=== PATIENT | female | born 1965 | race Caucasian/White ===

== ENCOUNTER 2017-02-27 21:43 | Emergency (ER) | payer OTHER ==
[~2017-02-27] VITALS: Ht 149.9 cm; Wt 40.8 kg
[~2017-02-27 21:43] MED LIST: MOTRIN800 MG PO; PRILOSEC10 MG; SKELAXIN800 MG; TORADOL10 MG
[2017-02-28] MEDS ORDERED: KETO10TA2 PO (02:40)
== END 2017-02-28 02:39 | disposition home or self-care (01) ==
LOC: ER 21:43
DX: R51 Headache (principal)

== ENCOUNTER → 2017-05-04 | Emergency (ER) | payer OTHER ==
[~2017-05-04] VITALS: Ht 149.9 cm; Wt 40.8 kg
[~2017-05-04] MED LIST changes: +KETO10TA2 PO
== END | disposition home or self-care (01) ==
LOC: ER 21:11
DX: H81.13 Benign paroxysmal vertigo, bilateral (principal)

== ENCOUNTER 2017-07-08 11:36 | Emergency (ER) | payer OTHER ==
[~2017-07-08] VITALS: Ht 162.6 cm; Wt 45.4 kg
== END 2017-07-08 15:20 | disposition home or self-care (01) ==
LOC: ER 11:36
DX: I47.1 Supraventricular tachycardia (principal)

== ENCOUNTER 2018-06-16 00:59 | Emergency (ER) | payer OTHER ==
[~2018-06-16] VITALS: Ht 149.9 cm; Wt 40.8 kg
[2018-06-16] MEDS ORDERED: SYNTHROID50 MCG (01:19)
[2018-06-16] MEDS ORDERED: METOPROLOL SUCC25 MG (01:19)
[2018-06-16] MEDS ORDERED: LEVSIN/SL0.125 MG SL (05:54)
[2018-06-16] MEDS ORDERED: CEFUROXIME500 MG PO (05:54)
[2018-06-16] MEDS ORDERED: KETO10TA2 PO (05:56)
[2018-06-16] MEDS ORDERED: FLUCONAZOLE150 MG PO (06:12)
== END 2018-06-16 06:24 | disposition home or self-care (01) ==
LOC: ER 00:59
DX: R10.31 Right lower quadrant pain (principal)

== ENCOUNTER 2024-09-05 09:40 | Emergency (ER) | payer OTHER ==
[~2024-09-05] VITALS: Ht 149.9 cm; Wt 46.3 kg
[~2024-09-05 09:40] MED LIST changes: +CEFUROXIME500 MG PO; +FLUCONAZOLE150 MG PO; +LEVSIN/SL0.125 MG SL; +METOPROLOL SUCC25 MG; +SYNTHROID50 MCG
[2024-09-05] MEDS ORDERED: 8 HOUR650 MG PO (12:30)
== END 2024-09-05 13:27 | disposition home or self-care (01) ==
LOC: ER 09:46
DX: S00.83XA Contusion of other part of head, initial encounter (principal); S89.80XA Other specified injuries of unspecified lower leg, initial encounter; W19.XXXA Unspecified fall, initial encounter; Y93.89 Activity, other specified; Y92.89 Other specified places as the place of occurrence of the external cause; Y99.8 Other external cause status; M25.561 Pain in right knee; M25.562 Pain in left knee; E03.8 Other specified hypothyroidism

== ENCOUNTER 2024-09-11 08:23 | Emergency (ER) | payer OTHER ==
[~2024-09-11] VITALS: Ht 149.9 cm; Wt 46.3 kg
[~2024-09-11 08:23] MED LIST changes: +8 HOUR650 MG PO
[2024-09-11 09:04] VITALS: BP 133/82; O2SAT 99
[2024-09-11] MEDS ORDERED: ORPHENADRINE CITRATE 30 MG/ML AMPUL IM STA (09:54)
[2024-09-11] MEDS ORDERED: KETOROLAC TROMETHAMINE 60 MG VIAL IM STA (09:54)
[2024-09-11] MEDS ORDERED: ACETAMINOPHEN 500 MG GEL..CAP PO STA (09:54)
== END 2024-09-11 10:49 | disposition home or self-care (01) ==
LOC: ER 08:23
DX: M43.6 Torticollis (principal); R51.9 Headache, unspecified